=== PATIENT | female | born 1995 | race American Indian/Alaskan Native ===

== ENCOUNTER 2020-03-17 10:14 | Emergency (ER) | payer SELFPAY ==
[2020-03-17 10:20] VITALS: BP 121/77
--- NOTE | 2020-03-17 11:09 | Emergency Department Report ---
Blank Doc - Documentation Documentation: 25-year-old female that presents with rash and bilateral eye swelling. Stated is itching. Exam: bilateral periorbital and facial rash. Uvula midline. No other angioedema. This initial assessment/diagnostic orders/clinical plan/treatment(s) is/are subject to change based on patient's health status, clinical progression and re- assessment by fellow clinical providers in the ED. Further treatment and workup at subsequent clinical providers discretion. Patient/guardians urged not to elope from the ED as their condition may be serious if not clinically assessed and managed. Initial orders include: 1- Patient sent to [facility] for further evaluation and treatment 2- treatment IV
[2020-03-17] MEDS ORDERED: dexAMETHasone 20 MG/5 ML VIAL IM ONE (11:52)
[2020-03-17] MEDS ORDERED: FAMOTIDINE 20 MG TAB PO ONE (11:53)
--- NOTE | 2020-03-17 12:34 | Emergency Department Report ---
ED Rash HPI - HPI Chief Complaint: Allergic Reaction Stated Complaint: SWOLLEN EYES,BUMPS ON ARM Time Seen by Provider: 03/17/20 11:06 Duration: 3 Days Suspected Cause: Unknown Rash Symptoms: Yes Itching, Yes Facial Swelling (mild bilat cheek swellimg and redness), No Tongue/Oral Swelling, No Breathing Difficulties, No Choking Sensation, No Wheezing/Dyspnea, No Peeling, No Blistering, No Fever, No Lightheaded, No Malaise, No Myalgias Severity: mild ED Review of Systems ROS: Stated complaint: SWOLLEN EYES,BUMPS ON ARM Other details as noted in HPI Comment: All other systems reviewed and negative ED Past Medical Hx - Past Medical History Previous Medical History?: No - Surgical History Past Surgical History?: No - Social History Smoking Status: Never Smoker Substance Use Type: None - Medications Home Medications: Home Medications Medication Instructions Recorded Confirmed Last Taken Type diphenhydrAMINE [Benadryl CAP] 25 mg PO QHS #30 capsule 03/17/20 Unknown Rx predniSONE [Deltasone] 10 mg PO QDAY #5 tab 03/17/20 Unknown Rx Rash Exam - Exam General: Vital signs noted. No distress. Alert and acting appropriately. HEENT: No Periorbital Edema, No Conjuctival Injection, No Chemosis, No Perioral Edema, No Tongue Edema, No Uvular Edema, No Compromised Airway, No Drooling Lungs: Yes Good Air Exchange (Normal Breath Sounds), No Wheezes, No Ronchi, No Stridor, No Cough, No Labored Respirations, No Retractions, No Use of Accessory Muscles, No Other Abnormal Lung Sounds Heart: Yes Regular, No Murmur Skin: Yes Erythema, No Urticarial Rash, No Maculopapular Rash, No Morbilliform rash, No Bulla(e), No Excoriations, No Weeping, No Tenderness, No Edema, No Encrustations, No Other Other: Positive: Abdomen Normal, Neurologic Normal, Musculoskeletal Normal ED Course Vital Signs 03/17/20 10:19 Temperature 98.5 F Pulse Rate 80 Respiratory 16 Rate Blood Pressure 121/77 O2 Sat by Pulse 100 Oximetry Critical care attestation.: If time is entered above; I have spent that time in minutes in the direct care of this critically ill patient, excluding procedure time. ED Disposition Clinical Impression: Allergic dermatitis Disposition: DC-01 TO HOME OR SELFCARE Is pt being admited?: No Does the pt Need Aspirin: No Condition: Stable Instructions: Contact Dermatitis (ED) Additional Instructions: Make sure to follow up with the primary care physician as discussed. Take all your medications as you've been prescribed. If you have any worsening symptoms or develop new symptoms please return to ED immediately. Prescriptions: diphenhydrAMINE [Benadryl CAP] 25 mg PO QHS #30 capsule predniSONE [Deltasone] 10 mg PO QDAY #5 tab Referrals: [facility] [Outside] - 3-5 Days Forms: Work/School Release Form(ED) Time of Disposition: 12:47
== END 2020-03-17 13:02 | disposition home or self-care (01) ==
LOC: ED 10:14
DX: L23.9 Allergic contact dermatitis, unspecified cause (principal); Z79.899 Other long term (current) drug therapy
CPT/HCPCS: 96372; 99282; J1100

== ENCOUNTER 2021-11-01 17:19 | Emergency (ER) | payer OTHER ==
[2021-11-01] MEDS ORDERED: MORPHINE 4 MG/1 ML INJ IV ONE (20:26)
[2021-11-01] MEDS ORDERED: ONDANSETRON 4 MG/2 ML INJ IV ONE (20:27)
[2021-11-01 21:14] LABS: Hematocrit 39.9 % (30.3-42.9); Hemoglobin 12.8 gm/dl (10.1-14.3); Mean Corpuscular HGB Conc 32 % (30-34); Mean Corpuscular Volume 77 fl (79-97); Platelet Count 240 K/mm3 (140-440); Red Blood Count 5.19 M/mm3 (3.65-5.03); Red Cell Distribution Width 14.7 % (13.2-15.2)
[2021-11-01 21:29] LABS: Alanine Aminotransferase 9 units/L (7-56); BUN/Creatinine Ratio 10; Blood Urea Nitrogen 8 mg/dL (7-17); Calcium 8.6 mg/dL (8.4-10.2); Hemolysis Index 6
[2021-11-01 21:32] LABS: Bacteria,Urine 1+ /HPF (Negative); Bilirubin,Urine NEG (Negative); Blood,Urine MOD (Negative); Color,Urine Yellow (Yellow); Mucus,Urine FEW /HPF
[2021-11-01 21:44] LABS: HCG Qualitative,Urine Negative (Negative)
--- NOTE | 2021-11-01 22:27 | Cat Scan Report ---
CT ABDOMEN AND PELVIS WITH CONTRAST INDICATION / CLINICAL INFORMATION: abdominal pain. TECHNIQUE: Axial CT images were obtained through the abdomen and pelvis after IV contrast. All CT sc ans at this location are performed using CT dose reduction for ALARA by means of automated exposure c ontrol. COMPARISON: None available. FINDINGS: LOWER CHEST: No significant abnormality of the imaged chest. LIVER: No significant abnormality. GALLBLADDER: No significant abnormality. BILE DUCTS: No significant abnormality. SPLEEN: No significant abnormality. PANCREAS: No significant abnormality. ADRENALS: No significant abnormality. RIGHT KIDNEY / URETER: No significant abnormality. LEFT KIDNEY / URETER: No significant abnormality. STOMACH / DUODENUM / SMALL BOWEL: No significant abnormality. COLON: No significant abnormality. APPENDIX: No significant abnormality. PERITONEUM: No free air or free fluid are present within the abdomen or pelvis. LYMPH NODES: No significant adenopathy. AORTA / ARTERIES: No significant abnormality. IVC / VEINS: No significant abnormality. URINARY BLADDER: No significant abnormality. REPRODUCTIVE ORGANS: No significant abnormality. ADDITIONAL ABDOMINAL/PELVIC FINDINGS: None. SKELETAL SYSTEM: No significant abnormality. IMPRESSION: 1. No acute findings. Signer Name: Rocky Noble II, MD Signed: 11/01/2021 10:23 PM Workstation Name: [id number]
[2021-11-01] MEDS ORDERED: cefTRIAXone/NS 1 GM/50 ML 1 GM/50 ML BAG IV ONE (22:39)
[2021-11-01] MEDS ORDERED: KETOROLAC 30 MG/1 ML INJ IV ONE (22:41)
[2021-11-01] MEDS ORDERED: POTASSIUM CHLORIDE ER 20 MEQ TAB PO ONE (22:42)
--- NOTE | 2021-11-01 22:43 | Emergency Department Report ---
<DAVIDSAROJRENETTA DELGADOANTONI Hanson - Last Filed: 11/02/21 01:07> ED Abdominal Pain HPI - General Chief Complaint: Abdominal Pain Stated Complaint: ABDOMINAL PAIN Time Seen by Provider: 11/01/21 20:20 Source: patient Mode of arrival: Ambulatory Limitations: No Limitations - History of Present Illness Initial Comments: 26-year-old black female with no past medical history presents to the emergency department for evaluation of diffuse abdominal pain that started last night. She she states that she has had nausea without vomiting, fever, and dysuria, but denies vomiting, diarrhea, and vaginal discharge. She states that pain is worse with ambulation and she has had a decrease in appetite. Last menstrual period was last week and she has no past surgical history. MD Complaint: abdominal pain -: Gradual (Since last night) Location: diffuse Radiation: none Severity: severe Severity scale (0 -10): 7 Quality: aching Consistency: constant Worsens With: movement Associated Symptoms: nausea, fever, dysuria. denies: vomiting, diarrhea, chills, constipation, hematemesis, hematochezia, melena, hematuria, anorexia, syncope - Related Data LMP Date: 10/26/21 Previous Rx's Medication Instructions Recorded Last Taken Type diphenhydrAMINE [Benadryl CAP] 25 mg PO QHS #30 capsule 03/17/20 Unknown Rx predniSONE 10 mg PO QDAY #5 tab 03/17/20 Unknown Rx Naproxen [Naprosyn] 500 mg PO BID #14 tab 11/01/21 Unknown Rx cephALEXin [Keflex] 500 mg PO Q12HR 7 Days #14 cap 11/01/21 Unknown Rx Allergies Allergy/AdvReac Type Severity Reaction Status Date / Time No Known Allergies Allergy Unverified 03/17/20 10:16 ED Review of Systems Comment: All other systems reviewed and negative Constitutional: chills, fever. denies: diaphoresis, malaise, weakness Eyes: denies: eye pain, eye discharge ENT: denies: ear pain, congestion Respiratory: denies: cough, shortness of breath Cardiovascular: denies: chest pain, palpitations, edema, syncope Endocrine: denies: no symptoms reported Gastrointestinal: abdominal pain, nausea. denies: vomiting, diarrhea, constipation, hematemesis, melena, hematochezia Genitourinary: dysuria. denies: urgency, frequency, hematuria, discharge Skin: as per HPI Neurological: denies: headache, weakness ED Past Medical Hx - Social History Smoking Status: Never Smoker - Medications Home Medications: Home Medications Medication Instructions Recorded Confirmed Last Taken Type diphenhydrAMINE [Benadryl CAP] 25 mg PO QHS #30 capsule 03/17/20 Unknown Rx predniSONE 10 mg PO QDAY #5 tab 03/17/20 Unknown Rx Naproxen [Naprosyn] 500 mg PO BID #14 tab 11/01/21 Unknown Rx cephALEXin [Keflex] 500 mg PO Q12HR 7 Days #14 cap 11/01/21 Unknown Rx ED Physical Exam - General Limitations: No Limitations General appearance: alert, in no apparent distress - Head Head exam: Present: atraumatic, normocephalic - Eye Eye exam: Present: normal appearance. Absent: conjunctival injection - Neck Neck exam: Present: normal inspection - Respiratory Respiratory exam: Present: normal lung sounds bilaterally. Absent: respiratory distress, wheezes, chest wall tenderness, accessory muscle use - Cardiovascular Cardiovascular Exam: Present: tachycardia, normal heart sounds - GI/Abdominal GI/Abdominal exam: Present: soft, tenderness (In all quadrants but more pronounced in bilateral lower quadrants), normal bowel sounds. Absent: distended, guarding, rebound - Extremities Exam Extremities exam: Present: normal inspection - Back Exam Back exam: Present: normal inspection, full ROM. Absent: tenderness, CVA tenderness (R), CVA tenderness (L) - Neurological Exam Neurological exam: Present: alert, oriented X3 - Psychiatric Psychiatric exam: Present: normal affect, normal mood - Skin Skin exam: Present: warm, dry, intact, normal color ED Medical Decision Making - Lab Data Result diagrams: 11/01/21 20:41 11/01/21 20:41 - Radiology Data Radiology results: report reviewed CT abdomen and pelvis with contrast no acute findings noted - Medical Decision Making 26-year-old black female with no past medical history presents to the emergency department for evaluation of diffuse abdominal pain that started last night. She she states that she has had nausea without vomiting, fever, and dysuria, but denies vomiting, diarrhea, and vaginal discharge. She states that pain is worse with ambulation and she has had a decrease in appetite. Last menstrual period was last week and she has no past surgical history. Elevated WBC at 21.8, urine positive for significant urinary tract infection. CT scan without any acute findings. Patient will be treated for urinary tract infection. She will be given IV Rocephin while in the emergency department and sent home with a prescription for 7-day course of Keflex. She will also be given naproxen to use as needed for pain. She was advised to take medications as prescribed, and follow-up with primary care provider or in the ED if no improvement or worsening symptoms. She verbalized understanding and agreement with plan of care. ED Disposition Clinical Impression: Hypokalemia, Bacteriuria with pyuria, Abdominal pain Disposition: HOME / SELF CARE / HOMELESS Is pt being admited?: No Does the pt Need Aspirin: No Condition: Stable Instructions: Hypokalemia, Urinary Tract Infection, Adult, [id number], Potassium Content of Foods, Abdominal Pain (ED) Additional Instructions: Take medications as prescribed. Drink plenty of fluids. Follow-up with primary care provider if no improvement or worsening symptoms. Prescriptions: cephALEXin [Keflex] 500 mg PO Q12HR 7 Days #14 cap Naproxen [Naprosyn] 500 mg PO BID #14 tab Referrals: PRIMARY CARE, [Primary Care Provider] - 3-5 Days Time of Disposition: 22:45 <TORIN HALEY - Last Filed: 11/02/21 22:40> ED Review of Systems ROS: Stated complaint: ABDOMINAL PAIN Other details as noted in HPI ED Course Vital Signs 11/01/21 11/01/21 11/01/21 19:03 21:10 22:57 Temperature 100.6 F H Pulse Rate 113 H Respiratory 20 16 14 Rate Blood Pressure 119/73 Blood Pressure [Right] O2 Sat by Pulse 100 Oximetry 11/01/21 23:16 Temperature 99.0 F Pulse Rate 107 H Respiratory 14 Rate Blood Pressure Blood Pressure 123/73 [Right] O2 Sat by Pulse 99 Oximetry ED Medical Decision Making - Lab Data Result diagrams: 11/01/21 20:41 11/01/21 20:41 Critical care attestation.: If time is entered above; I have spent that time in minutes in the direct care of this critically ill patient, excluding procedure time. ED Disposition Is pt being admited?: No Does the pt Need Aspirin: No
[2021-11-01 23:19] VITALS: BP 123/73
[2021-11-02 01:09] LABS: Anisocytosis 1+; Band Neutrophils # (Manual) 0.1 K/mm3; Basophils % (Manual) 0 % (0.0-1.8); Eosinophils % (Manual) 0.5 % (0.0-4.3); Platelet Estimate Consistent w Auto; Total Cells Counted 200
== END 2021-11-01 23:21 | disposition home or self-care (01) ==
LOC: ED 17:19
DX: E87.6 Hypokalemia (principal); R10.9 Unspecified abdominal pain; R82.81 Pyuria; R82.71 Bacteriuria
CPT/HCPCS: 36415; 74177; 80053; 81001; 81025; 83690; 85007; 85025; 87086; 96365; 96375; 99284; J0696; J1885; J2270; J2405; Q9967; 96374